=== PATIENT | female | born 1950 | race Caucasian/White ===

== ENCOUNTER → 2023-05-02 | Outpatient (CLI) | payer MEDICARE ==
--- NOTE | 2023-05-05 23:53 | MR ---
EXAMINATION TYPE: MR knee LT wo con DATE OF EXAM: 05/02/2023 COMPARISON: NONE HISTORY: LEFT KNEE POSTERIOR PAIN AND SWELLING X3 MONTHS. Valgus deformity, chondrocalcinosis, and un ilateral primary osteoarthritis. TECHNIQUE: Multiplanar, multisequence images of the knee is performed without IV contrast. FINDINGS: MEDIAL MENISCUS: Oblique signal posterior horn extends to inferior articular surface. LATERAL MENISCUS: Triangular shaped anterior horn extends to superior articular surface. Truncated ap pearance posterior horn with abnormal signal consistent with full-thickness tear at this level. CRUCIATE LIGAMENTS: The anterior and posterior cruciate ligaments are intact and unremarkable. COLLATERAL LIGAMENTS: The medial collateral ligament is intact with surrounding fluid. Ileal tibial b and is torn from proximal attachment. EXTENSOR MECHANISM: Visualized quadriceps and patellar tendons are intact. EFFUSION: Large size suprapatellar joint effusion. POPLITEAL CYST: Moderate to large size multi septated popliteal/doyle cyst measuring 8.5 cm long axis coronal image 31. TRICOMPARTMENT SPACES: Moderate to severe narrowing patellofemoral compartment with mild spurring. Mo derate narrowing and spurring medial and lateral tibiofemoral compartments. CARTILAGE: Chondromalacia patella with cartilaginous loss along the posterior patellar pole. BONE MARROW SIGNAL: No focal abnormal marrow signal is appreciated. OTHER: No additional significant abnormality is appreciated. IMPRESSION: 1. Full-thickness tear posterior horn medial meniscus. 2. Full-thickness tears involving anterior and posterior horns lateral meniscus. 3. Large-sized suprapatellar joint effusion. 4. Moderate to large sized multiseptated popliteal cyst. 5. Partial tearing of the lateral collateral ligament complex. 6. Moderate to severe tricompartment degenerative changes as detailed above.
== END | disposition home or self-care (01) ==
LOC: RADMRIMAIN 20:30
PROVIDERS: ATTEND Orthopaedic Surgery
DX: M17.12 Unilateral primary osteoarthritis, left knee (principal); S83.242A Other tear of medial meniscus, current injury, left knee, initial encounter; S83.422A Sprain of lateral collateral ligament of left knee, initial encounter; M71.22 Synovial cyst of popliteal space [Baker], left knee; M25.462 Effusion, left knee; M11.262 Other chondrocalcinosis, left knee; M21.062 Valgus deformity, not elsewhere classified, left knee; X58.XXXA Exposure to other specified factors, initial encounter

== ENCOUNTER → 2023-09-20 | Outpatient (CLI) | payer MEDICARE ==
--- NOTE | 2023-09-23 07:21 | MR ---
EXAMINATION TYPE: MR shoulder RT wo con DATE OF EXAM: 09/20/2023 COMPARISON: None. HISTORY: Severe right shoulder pain with difficulty raising arm overhead x 2-3months TECHNIQUE: Multiplanar, multisequence imaging of the right shoulder is performed without contrast. FINDINGS: Rotator Cuff: Supraspinatus and infraspinatus tendons are intact with surrounding fluid especially al donato the superior and bursal surface. Some increased signal in the distal infraspinatus tendon. There is focus of fluid at the articular surface involving the anterior fibers of the infraspinatus tendon sagittal image 28 measuring approximately 9 mm AP diameter. Subscapularis tendon is intact. Surroundi ng fluid is present extending superiorly. Rotator cuff muscle bulk is preserved. Acromioclavicular Joint: Moderate to severe narrowing with [id number] spurring and moderate to severe superior capsular hypertrophy. Loss some underlying fat plane noted on sagittal image 15 and c oronal image 17 for reference. Glenohumeral Joint: Moderate size joint effusion. Narrowing is present. No significant spurring. Labrum: Increased signal superior labrum consistent with degenerative tearing. Biceps Tendon: The long head of biceps is in normal location within bicipital groove. Bone marrow signal: No focal abnormal marrow signal is appreciated. Other: No additional significant abnormality is appreciated. IMPRESSION: 1. AC joint arthropathy with underlying impingement felt present. Correlate clinically. 2. Tendinosis and tearing of the infraspinatus tendon. Tendinosis of the subscapularis tendon. No ful l-thickness retracted rotator cuff tear. 3. Moderate-sized suprapatellar joint effusion. Moderate subdeltoid/subacromial bursitis.
== END | disposition home or self-care (01) ==
LOC: RADMRIMAIN 17:23
PROVIDERS: ATTEND Family Medicine
DX: M19.011 Primary osteoarthritis, right shoulder (principal); M67.813 Other specified disorders of tendon, right shoulder; M25.811 Other specified joint disorders, right shoulder; M25.411 Effusion, right shoulder